=== PATIENT | female | born 1965 | race Caucasian/White ===

== ENCOUNTER 2019-04-27 08:00 | Emergency (ER) | payer SELFPAY ==
[~2019-04-27] VITALS: Ht 154.9 cm; Wt 76.7 kg
--- NOTE | 2019-04-27 08:28 | NUR ---
PT WHEELED INTO ROOM VIA WHEELCHAIR. STATING HER LEFT LEG HAS BEEN "GIVING OUT" AND CAUSING HER TO ALMOST FALL THE LAST 3 DAYS. ACCOMPANIED WITH LOWER BACK BACK RADIATING ACROSS LOWER BACK FOR THE LAST MONTH. PT STATES SHE HAS NOT FALLEN NOR HAS ANY INJURY OCCURRED RECENTLY. PT STATES SHE IS WORRIED BECAUSE SHE HAD BACK SURGERY A FEW YEARS AGO AND MAYBE THIS IS CAUSING HER WEAKNESS. NADN. PT BEING PICKED UP BY TRANSPORT STAFF FOR XRAY AT THIS TIME.
[2019-04-27] MEDS ORDERED: KETOROLAC 60 MG/2 ML IM ONE (08:30)
[2019-04-27] MEDS ORDERED: KETOROLAC 60 MG/2 ML ONE (08:32)
--- NOTE | 2019-04-27 08:56 | NUR ---
PT BACK FROM XRAY. MEDICATED PER EMAR. STATING SHE IS IN 9-10/10 PAIN. MEDICATED PER EMAR. CALL LIGHT IN REACH.
[2019-04-27] MEDS ORDERED: LEVO50TA PO (09:03)
[2019-04-27] MEDS ORDERED: SOMA (09:03)
[2019-04-27] MEDS ORDERED: MUSCLE RELAXER (09:03)
[2019-04-27] MEDS ORDERED: PHEN100C PO (09:03)
--- NOTE | 2019-04-27 09:18 | NUR ---
MD AT BEDSIDE TO UPDATE PT ON POC.
--- NOTE | 2019-04-27 09:40 | NUR ---
AT PT BEDSIDE TO UPDATE PT ON POC. PT GIVEN WATER TO HELP WITH URNIATION TO PROVIDE URINE SAMPLE.
--- NOTE | 2019-04-27 10:23 | NUR ---
PT STATES, "MY PAIN HURTS A LOT." PT STATES IT IS OKAY WHEN SHE IS NOT MOVING. THIS RN ASKED PT IF SHE IS READY TO URINATE. SHE STATES SHE WILL TRY NOW.
--- NOTE | 2019-04-27 10:33 | NUR ---
PT AMBULATED TO BATHROOM AT THIS TIME. PT REQUIRED NO HELP FROM ASSISTIVE DEVICE OR THIS RN- WAS ABLE TO WALK ON HER OWN. URINE COLLECTED. PT RESTING ON GURNEY. NADN. PT COMPLAINS OF NO PAIN AT THIS TIME. CALL LIGHT IN REACH.
[2019-04-27 11:03] LABS: MICROSCOPIC INDICATED
[2019-04-27 11:13] LABS: CULTURE INDICATED? YES
[2019-04-27 11:50] VITALS: BP 138/66
== END 2019-04-27 12:01 | disposition home or self-care (01) ==
LOC: ED 11:40
DX: M51.37 Other intervertebral disc degeneration, lumbosacral region (principal); M25.562 Pain in left knee; N30.00 Acute cystitis without hematuria; F17.200 Nicotine dependence, unspecified, uncomplicated; Z88.8 Allergy status to other drugs, medicaments and biological substances
CPT/HCPCS: 72110; 73564; 81001; 87077; 87086; 96372; 99284; J1885; 87186

== ENCOUNTER 2019-05-17 09:38 | Inpatient (IN) | payer MEDICARE, MEDICAID ==
[~2019-05-17] VITALS: Ht 157.5 cm; Wt 88.7 kg
[2019-05-19 12:42] VITALS: BP 112/67
== END 2019-05-19 16:10 | disposition home or self-care (01) | DRG 263 ==
LOC: OR 11:48 → EDIP 12:01 → 4NOR 14:48 → DCLOUNGE 05-19 15:57
PROVIDERS: ADMIT Internal Medicine; ATTEND Internal Medicine
PROC: 0FT44ZZ Resection of Gallbladder, Percutaneous Endoscopic Approach (ICD-10-PCS; principal; 2019-05-17)
DX: K80.12 Calculus of gallbladder with acute and chronic cholecystitis without obstruction (principal); E03.9 Hypothyroidism, unspecified; N39.0 Urinary tract infection, site not specified; E66.9 Obesity, unspecified; Z68.35 Body mass index [BMI] 35.0-35.9, adult; F17.210 Nicotine dependence, cigarettes, uncomplicated; G40.909 Epilepsy, unspecified, not intractable, without status epilepticus; K29.00 Acute gastritis without bleeding; M79.7 Fibromyalgia; Z80.9 Family history of malignant neoplasm, unspecified; Z91.14 Patient's other noncompliance with medication regimen
CPT/HCPCS: 36415; 71045; 76700; 80053; 80185; 81001; 83690; 84443; 85025; 87086; 88304; 93005; 96365; 96366; 96368; 96375; G0378; J0690; J1100; J1165; J1170; J2405; J2704; J2710; J3010; J0330; J2270; J3490; J7120